=== PATIENT | male | born 1960 | race Caucasian/White ===

== ENCOUNTER 2024-01-07 09:18 | Emergency (ER) | payer OTHER, SELFPAY ==
[2024-01-07 09:23] VITALS: BP 196/104
--- NOTE | 2024-01-07 09:36 | ED.GENMED ---
History of Present Illness
General
Chief Complaint: Fall
Source: patient
Exam Limitations: none
Time Seen by Provider: 01/07/24 09:27
Nursing documentation reviewed up to this point in time: agreed with
Travel History
Have you had any contact with someone who has COVID-19?: No
Do you have any symptoms of coronavirus? Fever > 100 degrees, chills, cough, shortness of breath, sore throat, loss of taste or smell, muscle aches, or headache?: No
History of Present Illness
History of Present Illness:
This is a 63 y/o female with a PMH of HTN, HLP, IDDM, who presents to the ER today with right sided facial numbness and swelling x3 days. Patient states that he was hanging a picture in the bathroom 3 days ago when he was stepping into the tub in
order to get the right angle to hang the picture when he slipped on the soap suds in the bathtub and subsequently fell and hit the right side of his head onto the window sill. Patient states that at the time of the injury, he had a right-sided
headache and right-sided facial pain but he did not have any nausea or vomiting, loss of consciousness, dizziness. Patient states that the pain subsided within a few hours and he started to have numbness and tingling in the right side of his face,
and loss of sensation. Patient states that he also developed a lot of swelling. Patient presents today because of concern about the loss of sensation and possible nerve injury. Patient does not take any blood thinning medications. Patient denies
any changes to his vision, pain with eye movements. Patient does note some right-sided neck pain when he looks to the right but denies any numbness and tingling traveling down his arm, any focal weakness.
Review of Systems
Review of Systems
All Other Systems: ROS reviewed and negative except as documented in HPI and ROS
Phy Exam
Physical Exam
Physical Exam:
General: Patient is well-appearing and in no acute distress
Skin: Skin is warm and dry, there is a 10.5 cm abrasion over the right temporal/zygomatic region of the face. It is actively bleeding. No areas of ecchymosis.
Head: Abrasion noted to the right side of face, see above. No palpable hematomas of the scalp. No pain with palpation of the scalp. Decrease sensation to the infraorbital area.
Eyes: Right-sided palpebral swelling with mild erythema. No conjunctival injection or hematoma. EOMs are intact. Pupils are equal round and reactive to light.
Ears: No signs of trauma.
Cardiac: Regular rate. No tenderness palpation of the external chest wall.
Pulm: Normal respiratory effort.
Abdomen: No tenderness to palpation.
Musculoskeletal: Patient seen spontaneously moving cervical spine. No tenderness palpation of the cervical spine. Patient does have some right-sided sternocleidomastoid tenderness.
Neuro: Patient awake and alert, cranial nerves II through XII intact. No focal neurologic deficit. 5 out of 5 strength of the upper extremities bilaterally.
Course
Orders/Labs/Results
Orders:
Orders
01/07/24 10:09
CT Facial Bones W/o Iv Contras Urgent
Comment:
Reason For Exam: right sided facial swelling/trauma
01/07/24 10:10
CT Head W/o Iv Contrast Urgent
Comment:
Reason For Exam: head trauma, facial numbness
01/07/24 10:11
Vital Signs- Treatment ONCE
Frequency: Once
Comment: blood pressure check
Vital Signs
Initial and Last Documented VS:
Initial Vital Signs
Temp Pulse Resp BP Pulse Ox
98.2 F 58 16 196/104 97
01/07/24 09:23 01/07/24 09:23 01/07/24 09:23 01/07/24 09:23 01/07/24 09:23
Last Documented Vital Signs
Temp Pulse Resp BP Pulse Ox
98.2 F 51 14 175/88 97
01/07/24 09:23 01/07/24 11:41 01/07/24 11:41 01/07/24 11:41 01/07/24 11:41
MDM/Problems Addressed
Differential Diagnosis Includes:
Differentials include right-sided facial soft tissue injury, orbital fracture, zygomatic fracture, maxillary fracture, epidural hematoma, concussion
MDM/Problems Addressed:
Right-sided facial numbness and swelling
Chronic conditions affecting care: DM, HTN and Other (Hyperlipidemia)
Acute Exacerbation and/or Progression of Chronic Illness: HTN
*Pulse Oximetry
Patient hypoxic: no
*Critical Care Note
Total Time (30-74mins, 75-104mins- exclusive of procedures): Not Applicable
Data Reviewed
Review of Other/Old Records Reveals: Records (No recent ER visits or hospitalizations in [facility] records)
Source: patient
Patient Management
Escalation/DeEscalation of care consider admission/obs:
63-year-old male with past medical history of hypertension, hyperlipidemia, and insulin-dependent diabetes presenting emergency department today with right-sided facial numbness and swelling following a fall that occurred 3 days ago. Patient denies
dizziness, nausea, vomiting, loss of consciousness. On exam, patient has no tenderness to the cervical spine, his EOMs are intact, and his neurological exam is remarkable for decreased sensation to light touch in the infra-orbital region. CT scan
of the head and facial bones was obtained which revealed right sided orbital floor fracture, with no entrapment along with bilateral maxillary sinusitis which may represent acute sinusitis or hemorrhage. Spoke [place]. [place] [facility] [place] who is in
agreement with plan to discharge patient on Augmentin and close outpatient follow up. Patient medically stable for discharge.
ED Attending Note
-
Portions of this chart may have been created with voice recognition software.� Occasional wrong word or��sound alike� substitutions may have occurred due to the inherent limitations of voice recognition software.
Discharge Plan
Departure
Patient Disposition: Home (Routine Discharge)
Date of Disposition: 01/07/24
Time of Disposition: 12:00
Patient with high blood pressure during this ER visit?: Yes
Condition: Good
Discharge Problem:
Fracture of right orbital floor
Instructions: Head Injury in Adults (DC), Facial Fracture (DC), BLOOD PRESSURE
Prescriptions:
New
amoxicillin-pot clavulanate [Augmentin] 500-125 mg tablet
1 tab PO TID 5 Days Qty: 15 0RF
Referrals:
Heriberto Banegas DMD [Active] - Call in 1-3 days for appt
Luis Nolasco MD [Family Provider] -
Activity Restrictions/Additional Instructions:
We have sent Augmentin to your pharmacy. Please take one tablet 3 times daily for 5 days.
We have given you a referral for an oral maxillofacial surgeon. Please call today for a follow up appointment.
Please return to the ER with any concerns. Please follow up with your primary care provider.
Interventions
Interventions:
*Risk Screen - Suicide Last Done: 01/07/24 09:49
*General Assessment Last Done: 01/07/24 09:49
*Neglect/Abuse Screening Last Done: 01/07/24 09:49
ED- Fall Risk Assessment Last Done: 01/07/24 09:53
*ED COVID-19 Vaccine History Last Done: 01/07/24 09:23
*Nursing Disposition Last Done: 01/07/24 12:17
ED-Musculoskeletal Assessment Last Done: 01/07/24 09:49
ED- Neurological Assessment Last Done: 01/07/24 09:49
ED-Skin Assessment Last Done: 01/07/24 09:49
Discharge Date and Time
Discharge Date/Time: 01/07/24 12:18
--- NOTE | 2024-01-07 09:45 | EDRN ---
Haley QUINONEZ in room w/ pt at this time.
[2024-01-07 09:48] VITALS: BMI 30.8
--- NOTE | 2024-01-07 10:07 | EDRN ---
Dr. Morris in room w/pt at this time.
[2024-01-07 10:11] VITALS: BP 179/89
[2024-01-07 11:41] VITALS: BP 175/88
--- NOTE | 2024-01-07 11:43 | EDRN ---
Pt states he forgot to take his BP medication this am.
--- NOTE | 2024-01-07 12:06 | EDRN ---
Christiano Cuevas PA in room w/pt at this time.
== END 2024-01-07 12:18 | disposition home or self-care (01) ==
LOC: EMR 09:18
PROVIDERS: EMERGENCY PHYSICIAN Emergency Medicine; FAMILY PHYSICIAN Family Medicine
DX: S02.31XA Fracture of orbital floor, right side, initial encounter for closed fracture (principal); W18.2XXA Fall in (into) shower or empty bathtub, initial encounter; R20.0 Anesthesia of skin; I10 Essential (primary) hypertension; E11.9 Type 2 diabetes mellitus without complications
CPT/HCPCS: 99284; 70450; 70486

== ENCOUNTER 2024-01-11 09:01 | Emergency (ER) | payer OTHER, SELFPAY ==
[2024-01-11 09:07] VITALS: BP 111/66
--- NOTE | 2024-01-11 10:25 | ED.GENMED ---
History of Present Illness
General
Chief Complaint: Dizziness
Time Seen by Provider: 01/11/24 09:55
Travel History
Have you had any contact with someone who has COVID-19?: No
Do you have any symptoms of coronavirus? Fever > 100 degrees, chills, cough, shortness of breath, sore throat, loss of taste or smell, muscle aches, or headache?: No
History of Present Illness
History of Present Illness:
63-year-old male with history of insulin-dependent diabetes, hypertension, and hyperlipidemia presents to the emergency department for evaluation of dizziness and mild chest discomfort. The dizziness has been ongoing for the past several hours,
worse with position or exertion. Reports lightheadedness without vertigo. Of note he was seen here 6 days ago after a fall with a resultant orbital floor fracture on the right. He was scheduled to follow-up with [facility] today but canceled due to his
current symptoms. No fevers, chills, sweats, neck pain, extremity paresthesias, or vision changes.
Review of Systems
Review of Systems
Allergies reviewed?: Yes
All Other Systems: ROS reviewed and negative except as documented in HPI and ROS
Phy Exam
Physical Exam
Physical Exam:
GEN: Well appearing, NAD, WDWN
HEENT: Oral mucosa moist, no scleral icterus, no nasal congestion
Cardiac: Regular rate and rhythm, no murmurs
Lung: No respiratory distress, no tachypnea
MSK: No gross deformity or injuries
Skin: Good color, no pallor or jaundice, no rashes
Neuro: AO x3; CN II-XII grossly intact. BUE strength 5/5 in all mccallum, sensation intact and symmetric. BLE strength 5/5 in all mccallum, sensation intact and symmetric
Psych: Calm, cooperative
Course
Orders/Labs/Results
Orders:
Orders
01/11/24 09:14
EKG [Electrocardiogram (*1)] Urgent
Reason for Study: Vertigo / Dizzy
EKG- Treatment ONCE
01/11/24 10:21
IV Insert/Care/Rem.- Treatment PRN
01/11/24 10:26
Complete Blood Count/With Diff Urgent
Comprehensive Metabolic Panel Urgent
Troponin I Urgent
Abnormal Lab Results
01/11/24
10:26
Absolute Lymphs (auto) 1.0 L 10^3/uL
(1.2-3.4)
Neutrophils % 78.4 H %
(42.2-75.2)
Lymphocytes % 15.3 L %
(20.5-51.1)
Potassium 3.4 L mmol/L
(3.5-5.1)
Carbon Dioxide 33 H mmol/L
(22-30)
BUN 34 H mg/dl
(9-20)
Glucose 254 H mg/dl
(70-99)
01/11/24 10:26
01/11/24 10:26
Vital Signs
Initial and Last Documented VS:
Initial Vital Signs
Temp Pulse Resp BP Pulse Ox
97.7 F 81 18 111/66 97
01/11/24 09:07 01/11/24 09:07 01/11/24 09:07 01/11/24 09:07 01/11/24 09:07
Last Documented Vital Signs
Temp Pulse Resp BP Pulse Ox
97.7 F 58 15 127/75 95
01/11/24 09:07 01/11/24 11:45 01/11/24 11:45 01/11/24 11:00 01/11/24 11:45
MDM/Problems Addressed
MDM/Problems Addressed:
Patient's labs are reassuring. His dizziness in all likelihood is postconcussive in nature. He does not have vertigo to suggest any concern for vertebral artery injury in the setting of his recent fall. He is neurologically nonfocal clinically
well. Recommend rest and hydration with outpatient primary care follow-up if symptoms persist. There is no indication for CT of the head at this time particular given the recent unremarkable CT head obtained during last hospitalization.
Comment
Comment:
EKG independently interpreted by me shows sinus bradycardia rate of 53 with lateral T wave inversions and subtle ST depressions most consistent with LVH with strain, no priors for comparison
*Critical Care Note
Total Time (30-74mins, 75-104mins- exclusive of procedures): Not Applicable
ED Attending Note
-
Portions of this chart may have been created with voice recognition software.� Occasional wrong word or��sound alike� substitutions may have occurred due to the inherent limitations of voice recognition software.
Discharge Plan
Departure
Patient Disposition: Home (Routine Discharge)
Date of Disposition: 01/11/24
Time of Disposition: 11:55
Patient with high blood pressure during this ER visit?: No
Discharge Problem:
Light-headedness, Post concussion syndrome
Instructions: Post-Concussion Syndrome ED
Prescriptions:
No Action
amoxicillin-pot clavulanate [Augmentin] 500-125 mg tablet
1 tab PO TID 5 Days Qty: 15 0RF
Referrals:
Luis Nolasco MD [Family Provider] -
Interventions
Interventions:
*Risk Screen - Suicide Last Done: 01/11/24 09:11
*General Assessment Last Done: 01/11/24 09:11
*Neglect/Abuse Screening Last Done: 01/11/24 09:11
ED- Fall Risk Assessment Last Done: 01/11/24 10:16
*ED COVID-19 Vaccine History Last Done: 01/11/24 10:16
*Nursing Disposition Last Done: 01/11/24 12:01
ED- Neurological Assessment Last Done: 01/11/24 10:16
Discharge Date and Time
Discharge Date/Time: 01/11/24 12:01
[2024-01-11 10:26] VITALS: BP 135/77
[2024-01-11 10:36] LABS: % Basophils 0.4 % (0-2); % Immature Granulocytes 0.3 % (0-0.5); % Lymphocytes 15.3 % (20.5-51.1); % Monocytes 4.6 % (1.7-9.3); % Neutrophils 78.4 % (42.2-75.2); Absolute Eosinophils 0.1 10^3/uL (0-0.7); Absolute Monocytes 0.3 10^3/uL (0.1-0.6); Absolute Neutrophils 5.3 10^3/uL (1.4-6.5); Hematocrit 42.1 % (39.0-52.0); Hemoglobin 14.8 g/dL (13.0-18.0); Mean Corp Hgb Conc. 35.2 g/dL (33.0-37.0); Mean Corpuscular Volume 88.3 fL (80.0-94.0); Mean Platelet Volume 10.2 fL (7.4-10.4); Nucleated Red Blood Cells % 0 % (-); Platelet Count 256 10^3/uL (130-400); Red Blood Cell Count 4.77 10^6/uL (4.70-6.10); Red Cell Dist. Width 12.4 % (11.5-14.5); White Blood Cell Count 6.8 10^3/uL (4.8-10.8)
[2024-01-11 10:47] LABS: ALT (SGPT) 25 U/L (0-50); AST (SGOT) 39 U/L (17-59); Albumin 4.1 g/dl (3.5-5.0); Alkaline Phosphatase 81 U/L (38-126); Blood Urea Nitrogen 34 mg/dl (9-20); Calcium 8.9 mg/dl (8.4-10.2); Carbon Dioxide 33 mmol/L (22-30); Chloride 98 mmol/L (98-107); Glucose 254 mg/dl (70-99); Potassium 3.4 mmol/L (3.5-5.1); Sodium 135 mmol/L (135-145); Total Bilirubin 0.9 mg/dl (0.2-1.3); Total Protein 6.9 g/dl (6.3-8.2); eGFR > 60.00
[2024-01-11 10:59] LABS: Troponin I < 0.012 ng/ml
[2024-01-11 11:00] VITALS: BP 127/75
== END 2024-01-11 12:01 | disposition home or self-care (01) ==
LOC: EMR 09:01
PROVIDERS: Physician Assistant; EMERGENCY PHYSICIAN Emergency Medicine; FAMILY PHYSICIAN Family Medicine
DX: R42 Dizziness and giddiness (principal); F07.81 Postconcussional syndrome; E11.9 Type 2 diabetes mellitus without complications; E78.00 Pure hypercholesterolemia, unspecified; I10 Essential (primary) hypertension; Z79.4 Long term (current) use of insulin
CPT/HCPCS: 99283; 80053; 84484; 85025; 93005

== ENCOUNTER → 2024-05-01 11:01 | Outpatient (REF) | payer OTHER, SELFPAY | LOC: HWRAD 11:01 | PROVIDERS: ATTENDING PHYSICIAN Family Medicine | DX: I10 Essential (primary) hypertension (principal); E11.39 Type 2 diabetes mellitus with other diabetic ophthalmic complication | CPT/HCPCS: 93975 ==

== ENCOUNTER → 2024-09-08 06:35 | Day surgery (SDC) | payer OTHER, SELFPAY ==
[2024-09-08 07:43] LABS: Glucose - Point of Care 81 mg/dl (70-99)
[2024-09-08 08:11] LABS: Glucose - Point of Care 87 mg/dl (70-99)
[2024-09-08 09:06] LABS: Glucose - Point of Care 95 mg/dl (70-99)
== END ==
LOC: GI 06:35
PROVIDERS: ATTENDING PHYSICIAN Internal Medicine
DX: Z12.11 Encounter for screening for malignant neoplasm of colon (principal); D12.4 Benign neoplasm of descending colon; D12.5 Benign neoplasm of sigmoid colon; K63.5 Polyp of colon; K57.30 Diverticulosis of large intestine without perforation or abscess without bleeding; D12.8 Benign neoplasm of rectum; K64.8 Other hemorrhoids; Z86.0100 Personal history of colon polyps, unspecified
CPT/HCPCS: 45385; 88305; 82962